=== PATIENT | male | born 1970 | race Caucasian/White ===

== ENCOUNTER → 2017-03-21 | Outpatient (CLI) | payer OTHER | LOC: CAT 12:52 | DX: Z13.6 Encounter for screening for cardiovascular disorders (principal) ==

== ENCOUNTER 2017-12-21 09:33 | Observation (INO) | payer OTHER ==
[2017-12-21] VITALS (12 sets, daily range): BP systolic 119–139; BP diastolic 80–94
[~2017-12-21] VITALS: Ht 154.9 cm; Wt 67.3 kg
--- NOTE | ~2017-12-21 | CATHLAB ---
[facility] [place] [address] INVASIVE PROCEDURE REPORT Name: JAROCHO MEDINA Room #: 201-P [facility] IN ..#: [id number] Admission: 12/21/17 Attend Phys: Dmitriy Hawkins Discharge: 12/22/17 Date of : 74 Date of Service: 12/27/17 1201 Report #: [id number] THIS REPORT FOR: //name// APPROVED REPORT Study performed: 12/21/2017 10:42:28 Patient Details Patient Status: Out-Patient Room #: The patient is a 47 year-old male Event Personnel Dmitriy Jordan [employer] Supervisor, Teresa Galo RN RN, Klarissa King RN RN, Sorin Law, Kassandra Gregorio RTR, FIXED [employer]E [employer]ADING VICE PRESIDENT Scrub Procedures Performed Left Heart Cath w/or w/o Coronaries [id number] [facility] TEE Place w/wo Plasty Single CIRC [id number] supervision of conscious sedation Indication Positive stress test, Chest pain Procedure Narrative The Right Groin^ was infiltrated with 1% Lidocaine subcutaneous anesthesia. A PINNACLE 6FR Sheath #[id number] sheath was inserted into the RFA^. Coronary angiography was performed using coronary diagnostic catheters. The right coronary system was accessed and visualized with a JR4 catheter. The left coronary system was accessed and visualized with a JL4 catheter. The left ventricle was accessed and visualized with a PIGTAIL catheter. Left ventricular/Aortic Valve gradient assessed via catheter pullback. Closure device was deployed with a 6 Fr MYNXGRIP 6/7F #[id number]. The patient tolerated the procedure well and there were no complications associated with the procedure. There was no hematoma. Intraoperative Conscious Sedation Sedation start time: 11.23 Case end Time: 12.12 Versed 3 mg Fluoro Time: 11.43 minutes Dose: DAP 8605 cGycm2 1299 mGy Contrast Type and Amount: Omnipaque 150 ml [facility] [place] [address] INVASIVE PROCEDURE REPORT Name: JAROCHO MEDINA Room #: 201-P [facility] IN .R.#: [id number] Admission: 12/21/17 Attend Phys: Dmitriy Hawkins Discharge: 12/22/17 Date of : 74 Date of Service: 12/27/17 1201 Report #: [id number] Coronary Angiography The patient's coronary anatomy is right dominant. Diagnostic Cath Left Main Normal origin and caliber bifurcates left anterior descending left circumflex free of high-grade disease LAD Small-caliber vessel which courses in the anterior interventricular sulcus. There appears to be a 40-50% lesion in the proximal mid LAD which is not flow-limiting. The LAD proper then continues towards the apex and terminates at the apex is a small bifurcating vessel with luminal irregularities noted Diagonal 1 Caliber vessel without significant high-grade lesions present Circumflex Moderate caliber nondominant vessel proceeds laterally. He gives rise to a marginal branch which has diffuse high-grade disease in its middle third. It then continues on as a smaller caliber vessel terminating and posterior aspect of the left ventricle. OM1 Small to moderate caliber vessel with a high-grade 90% lesion proximally surrounded by regions of 50-70%. Appears to have slower flow through the lesions. Right Coronary Normal origin moderate caliber proceeds in the AV groove facility given rise to posterior descending artery free of significant high-grade disease. The RCA proper then terminates as a small posterior wall branches beyond this point R PDA Moderate caliber Left Ventriculography Left Ventriculography was not performed. Hemodynamics The aortic pressure is 133/83 mmHg with a mean of 83 mmHg. The left ventricular pressure is 121/15 mmHg with a mean of mmHg. The left ventricular end diastolic pressure is 23 mmHg. PCI Technique Without significant high-grade lesion as it courses in the posterior interventricular sulcus towards the apex after determination of revascularization was made the system was sized up for 6 [place] catheter. Standard left guide was then engaged and a 014 wire was advanced and the distal circumflex marginal branch. Utilizing predilatation balloon to provide adequate advancement of stent TEE stenting was performed as documented in the catheter lab documentation. This stent was positioned and placed with the dilatation unsuccessful. Proximal to the stent required a second [facility] [address] [place] [address] INVASIVE PROCEDURE REPORT Name: JAROCHO MEDINA Room #: 201-P [facility] IN M.R.#: [id number] Admission: 12/21/17 Attend Phys: Dmitriy Hawkins Discharge: 12/22/17 Date of : 74 Date of Service: 12/27/17 1201 Report #: [id number] stent which was placed without difficulty. Flow through the vessel was RA 1 post procedure is no loss of side branch distal embolization or intraluminal disruption noted. Antiplatelet agents were given in the catheter lab PCI Technique Lesion Percutaneous coronary intervention was performed on the mid circumflex artery segment. A LAUNCHER 6FR JL4 #[id number] Guide Catheter was used to engage the ostium. A Luge Wire (J) .014 X 182CM #[id number] Interventional Guidewire was used to cross the lesion. STENT DEPLOYMENT A drug-eluting stent RESOLUTE ALESSANDRA RX 2.25 X 12 #[id number] was inserted and inflated up to 12.00atm for 8seconds. Additional Inflation: 18.00atm for 17seconds. PCI Technique Lesion 2 Percutaneous Coronary Intervention was performed on the proximal circumflex artery segment. A LAUNCHER 6FR JL4 #[id number] Guide Catheter was used to engage the ostium. A Luge Wire (J) .014 X 182CM #[id number] Interventional Guidewire was used to cross the lesion. Stent Deployment A drug-eluting stent RESOLUTE ALESSANDRA RX 2.25 X 18 #[id number] was inserted and inflated up to 18.00atm for 8seconds. Additional Inflation: 21.00atm for 10seconds. Post Stent Deployment Balloon Dilation A Balloon catheter TREK NC RX 3.0 X 8 #[id number] was inserted and inflated up to 12.00atm for 13seconds. Additional Inflation: 12.00atm for 11seconds. Additional Inflation: 16.00atm for 7seconds. Conclusion 1. Coronary disease with severe left circumflex and moderate LAD 2. Abnormal his dynamics with elevated left ventricular end-diastolic pressures 3. Successful percutaneous revascularization involving a TEE Medtronic stent to the mid left circumflex marginal branch Recommendations Cardiac Risk Reduction Program [facility] [address] [place] [address] INVASIVE PROCEDURE REPORT Name: JAROCHO MEDINA Room #: 201-P [facility] IN M.R.#: [id number] Admission: 12/21/17 Attend Phys: Dmitriy Hawkins Discharge: 12/22/17 Date of : 74 Date of Service: 12/27/17 1201 Report #: [id number] Medications Administered Prasugrel <ELECTRONICALLY SIGNED> By: Dmitriy Jordan MD 12/27/17 1201 120 00 Dmitriy Jordan MD /INF
--- NOTE | ~2017-12-21 | EKG ---
[address] [address] ELECTROCARDIOGRAM REPORT Name: MICHELLE MEDINAN BETSY Room #: 201-P [facility] M.R.#: [id number] Admission: 12/21/17 Attend Phys: Dmitriy Jordan Discharge: 12/22/17 Date of : 74 Report #: [id number] REPORT FOR: //name// [facility] Test Date: 2017-12-22 Test Time: 10:17:14 Pat Name: JAROCHO MEDINA Department: Room: 201 P Gender: M Lead Ios Developer: YEISON : 1970 Requested By: Roseann Alvarado Order Number: [id number] MD: Alberto Lou Measurements Intervals [place] Rate: 79 P: 70 CT: 124 QRS: 34 QRSD: 92 T: 27 QT: 343 QTc: 394 Interpretive Statements Sinus rhythm No previous ECG available for comparison Electronically Signed On 12-22-2017 13:07:04 CDT by Alberto Lou [email or web address] <ELECTRONICALLY SIGNED> By: Alberto Lou MD 12/22/17 1307 1017 1017 Alberto Lou MD /MIRANDA
[2017-12-21] MEDS ORDERED: ASPIR 8181 MG PO (10:21)
[2017-12-21] MEDS ORDERED: LIPITOR10 MG PO (10:22)
[2017-12-21] MEDS ORDERED: LISINOPRIL5 MG PO (10:22)
[2017-12-21] MEDS ORDERED: NITROGLYCERIN0.4 MG PO (10:22)
[2017-12-21 10:23] LABS: HEMATOCRIT 47.4 % (42.0-52.0); HEMOGLOBIN 16.4 gm/dL (14.0-18.0); MCH 28.9 pg (26.0-34.0); MCHC 34.6 g/dL (28.0-37.0); MCV 83.5 fL (80.0-100.0); RBC 5.68 mil/uL (4.50-6.00); RDW 13.4 % (10.5-14.5); WBC 5.3 thou/uL (4.0-11.0)
[2017-12-21 10:30] LABS: CALCIUM 9.4 mg/dL (8.5-10.1)
[2017-12-21] MEDS ORDERED: EFFIENT10 MG PO (14:43)
[2017-12-21] MEDS ORDERED: ASPIRIN325 PO (14:43)
[2017-12-21] MEDS ORDERED: CRESTOR5 MG PO (14:45)
[2017-12-22 04:48] VITALS: BP 135/91
[2017-12-22 05:08] LABS: CALCIUM 9.1 mg/dL (8.5-10.1); POTASSIUM 3.8 mmol/L (3.5-5.1)
[2017-12-22 05:21] LABS: HEMOGLOBIN 15.5 gm/dL (14.0-18.0); MCH 29.2 pg (26.0-34.0); MCHC 35.2 g/dL (28.0-37.0); MCV 82.8 fL (80.0-100.0); RBC 5.31 mil/uL (4.50-6.00); RDW 13.8 % (10.5-14.5); WBC 6.8 thou/uL (4.0-11.0)
[2017-12-22 07:25] VITALS: BP 119/82
[2017-12-22 11:09] VITALS: BP 119/82
== END 2017-12-22 12:28 | disposition home or self-care (01) ==
LOC: CATH 09:33 → 2N 11:47 → CATH 11:57 → 2N 12-22 12:28
PROVIDERS: Internal Medicine
DX: I25.10 Atherosclerotic heart disease of native coronary artery without angina pectoris (principal); I10 Essential (primary) hypertension; E78.5 Hyperlipidemia, unspecified; R93.1 Abnormal findings on diagnostic imaging of heart and coronary circulation; R94.39 Abnormal result of other cardiovascular function study; Z72.89 Other problems related to lifestyle